=== PATIENT | male | born 1990 | race Caucasian/White ===

== ENCOUNTER 2018-12-17 20:02 | Emergency (ER) | payer SELFPAY ==
--- NOTE | 2018-12-17 20:20 | NUR ---
Pt told registration that he was going to go to [facility]. I called [facility] at this time and informed Dodie that he was headed to [facility]. Pt left without signing AMA form.
== END 2018-12-17 20:20 | disposition left against medical advice (07) ==
LOC: ER FS 20:04
DX: S99.912A Unspecified injury of left ankle, initial encounter (principal); X58.XXXA Exposure to other specified factors, initial encounter

== ENCOUNTER 2018-12-17 21:03 | Emergency (ER) | payer BC, OTHER ==
[~2018-12-17] VITALS: Ht 172.7 cm; Wt 81.6 kg
--- NOTE | 2018-12-17 22:14 | ED Lower Extremity ---
General Chief Complaint: Lower Extremity Stated Complaint: L ANKLE INJ Nursing Triage Note: PATIENT STATES THAT HE WAS PLAYING BASKETBALL AND ROLLED HIS LEFT ANKLE. PAIN AND SWELLING TO SITE. Nursing Sepsis Screen: No Definite Risk Source: patient Exam Limitations: no limitations History of Present Illness Date Seen by Provider: Dec 17, 2018 Time Seen by Provider: 21:15 Initial Comments 28-year-old male who presents to the emergency room with complaints of left ankle pain and swelling. He reports that he was playing basketball with his son this evening when he came down on his left ankle and cause it to roll. Onset: this evening Pain/Injury Location: left ankle Modifying Factors: Worse With Movement Allergies and Home Medications Allergies Coded Allergies: No Known Drug Allergies (Unverified , 12/17/18) Past Ffwdyzu-Lrwbfr-Qtwxfu Hx Patient Social History Alcohol Use: Denies Use Recreational Drug Use: No Smoking Status: Never a Smoker 2nd Hand Smoke Exposure: No Recent Foreign Travel: No Contact w/Someone Who Travel: No Recent Infectious Disease Expo: No Recent Hopitalizations: No Physical Abuse: No Sexual Abuse: No Seasonal Allergies Seasonal Allergies: No Past Medical History Surgeries: No Respiratory: No Cardiac: No Neurological: No Genitourinary: No Gastrointestinal: No Musculoskeletal: No Endocrine: No HEENT: No Cancer: No Psychosocial: No Integumentary: No Blood Disorders: No Physical Exam Vital Signs Vital Signs - First Documented 12/17/18 21:10 Temp 97.8 Pulse 94 Resp 18 B/P (MAP) 136/81 (99) Pulse Ox 99 Capillary Refill : Less Than 3 Seconds Height, Weight, BMI Height: 5'8.00" Weight: 180lbs. 0oz. 81.969374gz; BMI Method:Stated Progress/Results/Core Measures Results/Orders My Orders Orders - CARMEN GAN Ankle, Left, 3 Views (12/17/18 21:16) Vital Signs/I&O 12/17/18 21:10 Temp 97.8 Pulse 94 Resp 18 B/P (MAP) 136/81 (99) Pulse Ox 99 Blood Pressure Mean: 99 Departure Impression Primary Impression: Ankle sprain Disposition: 01 HOME, SELF-CARE Condition: Stable/Unchanged Departure-Patient Inst. Decision time for Depature: 22:16 Referrals: NO,LOCAL PHYSICIAN (PCP/Family) Primary Care Physician Patient Instructions: Ankle Sprain (DC) Add. Discharge Instructions: Rest the ankle, elevate as much as possible, ice to the sore areas at 20 minute intervals. Tylenol and ibuprofen as directed by the bottle for pain relief. Use the crutches and splint as needed for comfort. Follow-up with your primary care provider within 1 week for recheck. Return back to the emergency room for worsening symptoms or concerns as needed. All discharge instructions reviewed with patient and/or family. Voiced understanding. CARMEN GAN Dec 17, 2018 22:14
[2018-12-17] MEDS ORDERED: HYDROcodone/APAP 5 MG/325 MG (LORTAB) TAB PO ONE (22:15)
[2018-12-17 22:28] VITALS: BP 136/81
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
== END 2018-12-17 22:29 | disposition home or self-care (01) ==
LOC: EDUNIT# 21:03 → ER 21:05
DX: S93.402A Sprain of unspecified ligament of left ankle, initial encounter (principal); X50.1XXA Overexertion from prolonged static or awkward postures, initial encounter; Y93.67 Activity, basketball
CPT/HCPCS: 73610

== ENCOUNTER 2022-02-12 18:25 | Emergency (ER) | payer BC ==
[~2022-02-12] VITALS: Ht 170.1 cm; Wt 86.3 kg
[2022-02-12 18:30] VITALS: BP 126/85
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
== END 2022-02-12 19:37 | disposition home or self-care (01) ==
LOC: EDUNIT# 18:25 → ER FS 18:26
DX: T75.1XXA Unspecified effects of drowning and nonfatal submersion, initial encounter (principal); Z28.310 Unvaccinated for COVID-19
CPT/HCPCS: 71045